=== PATIENT | female | born 1960 | race Caucasian/White ===

== ENCOUNTER 2016-06-16 07:00 | Emergency (ER) | payer OTHER ==
[~2016-06-16] VITALS: Ht 172.7 cm; Wt 56.8 kg
[~2016-06-16 07:00] MED LIST: KEP500TA PO; MULT-1018 PO
[2016-06-16 07:03] VITALS: BP 101/70; PULSE 114; RESP 14; O2SAT 97
--- NOTE | 2016-06-16 07:11 | ED.REPORT ---
HPI-Abd Pain F 40 and Over Date of Service Jun 16, 2016 ED Provider: Julius Stack DO The patient is a 55 year old female who presents to the ED due to dysuria for the past 2 days. Pt says that she thinks she has a bladder infection. Associated symptoms include increased urinary urgency, abdominal pain, and excessive thirst. Pt also c/o a recent, very painful rash on her right butt cheek. She had a fall last year and has since been at [facility] and just transitioned to parent's house for recovery. She denies fever, chills, vomiting , and diarrhea. Nursing Notes Stated Complaint: STOMACH PAIN Chief Complaint: Female Abdominal Pain Nursing Notes Reviewed: Yes Allergies: Coded Allergies: No Known Allergies (Unverified , 07/24/15) Scheduled Acyclovir (Acyclovir) 800 Mg Tab 800 MG PO 5XD Levetiracetam (Keppra) 500 Mg Tablet 500 MG PO BID Multivitamin (Multi Vitamin Daily) 1 Each Tablet 1 EACH PO DAILY Scheduled PRN Phenazopyridine (Pyridium) 200 Mg Tablet 200 MG PO TID PRN PRN For Pain General Time Seen by MD: 07:11 Chief Complaint Dysuria Hx Obtained From: Patient Arrived By: Walk-in Sudden in Onset?: Yes Onset Occurred: 2 days ago Symptom Duration: Since onset Location: : Abdomen lower Quality: Painful Radiation: : Does not radiate Severity: Current: Mild Past Medical History Past Medical History liver damage compresion fracture Past Surgical History right tibia surgery bilateral shoulder reconstruction tubal ligation Reports: Appendectomy Smoking History Never Smoker Social History hx of heavy drinking Other Social History: Lives with parents, Local resident Ambulatory Status Independent Review of Systems Constitutional: Denies: Chills, Fever GI: Reports: Abdominal pain, Denies: Diarrhea, Vomiting Female: Reports: Dysuria, Flank pain, Urinary urgency Complete sys rev & neg: except as marked. Skin: Reports Rash (right butt cheek) Physical Exam Physical Exam Notes: Vital Signs Vital Signs (First) Date Time Temp Pulse Resp B/P Pulse Ox O2 Delivery O2 Flow Rate FiO2 06/16/16 07:03 36.8 114 14 101/70 97 Room Air Initial VS: Reviewed Head / Eyes: Atraumatic, Normocephalic, PERRL ENT: Mucous membranes moist, Conjunctiva normal Neck: Supple, Non-tender Extremities: Vascular intact, Neuro intact, No swelling, No tenderness Psychiatric: Mood/affect normal, Behavior normal General/Constitutional: Awake, Alert, Cooperative Respiratory / Chest: Atraumatic, Breath sounds NL, Breath sounds = bilat, No respiratory distress, No rales, No rhonchi, No wheezing Cardiovascular: Heart rate NL, Regular rhythm, Heart sounds NL, No gallop, No murmurs, No rubs Abdomen: Soft mildly tender Flank / Spine / Paraspinal: Negative: Erythema present, Swelling present right CVA tender Color / Condition: Positive: Rash present Rash / Lesion Notes: vasicular rash along the right sacral and gluteal area Interpretation & Diagnostics Lab Results Interpretation Result Diagram: 06/16/16 0745 06/16/16 0745 Test 06/16/16 07:45 06/16/16 09:07 White Blood Count 11.0th/mm3 (3.8-10.1) Red Blood Count 4.82mil/mm3 (3.90-5.20) Hemoglobin 12.5g/dL (12.0-15.6) Hematocrit 37.8% (35.0-46.0) Mean Corpuscular Volume 78.4fL (81-100) Mean Corpuscular Hemoglobin 25.9pg (27.0-35.0) Mean Corpuscular Hemoglobin Concent 33.1% (32.0-37.0) Red Cell Distribution Width 17.5% (12.3-15.4) Platelet Count 266bil/L (150-400) Neutrophils (%) (Auto) 73.0% (40-74) Lymphocytes (%) (Auto) 12.2% (14-46) Monocytes (%) (Auto) 12.5% (4-12) Eosinophils (%) (Auto) 1.5% (0-5) Basophils (%) (Auto) 0.4% (0-3) Sodium Level 132mEq/L (134-144) Potassium Level 4.0mEq/L (3.5-5.2) Chloride Level 89mEq/L (97-108) Carbon Dioxide Level 25mmol/L (18-29) Blood Urea Nitrogen 10mg/dL (6-24) Creatinine 0.37mg/dL (0.57-1.00) Estimat Glomerular Filtration Rate 262mL/min (>59) Glucose Level 119mg/dL (60-99) Calcium Level 9.7mg/dL (8.5-10.1) Total Bilirubin 1.3mg/dL (0.0-1.2) Aspartate Amino Transf (AST/SGOT) 38U/L (0-50) Alanine Aminotransferase (ALT/SGPT) 38U/L (0-32) Alkaline Phosphatase 144U/L (25-150) Total Protein 7.6g/dL (6.4-8.4) Albumin 4.4g/dL (3.4-5.0) Hold Dye Top Tube Received (Received) Urine Color Yellow (YELLOW) Urine Appearance Clear (CLEAR,HAZY) Urine pH 7.0 (5.0-8.0) Urine Specific [place]ion 1.010 (1.003-1.035) Urine Protein Negativemg/dL (NEG,TRACE) Urine Glucose (UA) Negativemg/dL (NEGATIVE) Urine Ketones Negativemg/dL (NEGATIVE) Urine Occult Blood Negative (NEGATIVE) Urine Nitrite Negative (NEGATIVE) Urine Bilirubin Negative (NEGATIVE) Urine Urobilinogen Normalmg/dL (NORMAL) Urine Leukocyte Esterase Negative (NEGATIVE) Urine RBC 0-2/hpf (0-2) Urine WBC 0-5/hpf (0-5) Urine Epithelial Cells Occasional/hpf (NONE-MOD) Urine Crystals None seen (NONE SEEN) Urine Bacteria None/hpf (NONE-FEW) Urine Hyaline Casts None/lpf (NONE) Urine Granular Casts None seen (NONE SEEN) Urine Waxy Casts None seen (NONE SEEN) Urine Red Blood Cell Casts None seen (NONE SEEN) Urine White Blood Cell Casts None seen (NONE SEEN) Urine Mucus None seen (None Seen) Urine Trichomonas None seen (NONE SEEN) Urine Yeast None (NONE SEEN) Urinalysis Comment None Urine Culture Reflexed Not indicated Re-Eval/Medical Decision Med Decision/Clinical Course Patient has shingles to the right sacral and right perineal area, labs are overall unremarkable. No evidence of urinary tract infection, no peritoneal signs on abdominal exam. Will be treated with acyclovir and Pyridium for urethral discomfort. Of note the patient was in mild urinary retention with 300 mL of urinary output after catheterization. However, I do not think that this is neurologic in nature such as cauda equina, think it is more related to local irritation and swelling of the urethra in the setting of a sacrally distributed case of shingles. We did discuss utility of Rossi catheter placement versus a trial at home. Patient is in agreement with a trial without a Rossi as she was only in mild retention and understands the potential risk of introducing bacteria causing urinary tract infection. Return and follow-up precautions are given. Counseled Regarding: Diagnosis, Lab results, Need for follow-up, When/why to return to ED Discharge & Departure Primary Impression: Shingles Herpes zoster complications: without complications Qualified Code: B02.9 - Zoster without complications Disposition: Home Discharge Condition All VS Reviewed: Yes Condition: Stable Additional Instructions: You have shingles. The reason why he had difficulty urinating with pain is that you have shingles lesions on the right side of your vagina, and near your urethra. There is no sign of urinary tract infection. Take acyclovir as prescribed. Use Azo as this may help with her urinary tract symptoms. Be sure to stay hydrated. Call your primary care doctor today for close follow-up and reevaluation. Return to the ER as needed if worse Referrals: [facility] Attestation Portion of this note were transcribed by Catherine Alvarez. I, Dr. Stack, personally performed the history, physical exam, and medical decision-making: I reviewed and confirmed the accuracy for the information in the transcribed note. Signed by: germain Jauregui, 06/16/16 0900 copies to: [facility] Julius Stack DO Jun 16, 2016 07:11 Catherine Alvarez Jun 16, 2016 07:27
[2016-06-16 07:53] LABS: BASOPHILS % (AUTO) 0.4 % (0-3); EOSINOPHILS % (AUTO) 1.5 % (0-5); MONOCYTES % (AUTO) 12.5 % (4-12); Mean Corpuscular Hemoglobin 25.9 pg (27.0-35.0); Mean Corpuscular Volume 78.4 fL (81-100); Platelet Count 266 bil/L (150-400)
[2016-06-16 09:39] LABS: APPEARANCE,URINE CLEAR (CLEAR,HAZY); COLOR,URINE YELLOW (YELLOW); OCCULT BLOOD,URINE NEGATIVE (NEGATIVE); UROBILINOGEN,URINE NORMAL (NORMAL)
[2016-06-16] MEDS ORDERED: PHEN-684 PO (09:52)
[2016-06-16] MEDS ORDERED: ZOV800 PO (09:52)
[2016-06-16] MEDS ORDERED: Acyclovir 800 mg Tablet PO ONE (10:10)
[2016-06-16 10:51] VITALS: BP 140/38; PULSE 88; RESP 14; O2SAT 97
== END 2016-06-16 10:42 | disposition home or self-care (01) ==
LOC: EDUNIT# 07:00 → SED 07:00 → EDBD 07:00 → SED 10:42
DX: B02.9 Zoster without complications (principal)